=== PATIENT | female | born 1955 | race Caucasian/White ===

== ENCOUNTER 2016-04-03 15:23 | Inpatient (IN) | payer OTHER ==
[~2016-04-03] VITALS: Ht 172.7 cm; Wt 86.2 kg
[2016-04-03 17:37] LABS: HEMATOCRIT 41.1 % (36.0-46.0); MCH 28.6 PG (29.0-34.0); MCHC 33.6 G/DL (30.0-36.0); MCV 85.3 FL (83-99); MEAN PLAT.VOLUME 9.1 uM^3 (9.5-12.4); PLATELET COUNT 304 K/uL (156-360); RBC DIS.WIDTH-CV 13.9 % (11.8-14.6); RBC DIS.WIDTH-SD 42.8 % (39-53); RED BLOOD COUNT 4.82 M/uL (3.80-5.20); WHITE BLOOD COUNT 9.8 K/uL (4.1-10.2)
[2016-04-03 17:48] LABS: CHLORIDE 107 mEq/L (99-109); SODIUM 139 mEq/L (136-147)
[2016-04-03 17:50] LABS: GLUCOSE 89 mg/dL (70-99)
[2016-04-03 17:51] LABS: ANION GAP 7 MEQ/L (2-14)
[2016-04-03 17:52] LABS: TOTAL BILIRUBIN 0.5 mg/dL (0.0-1.0)
[2016-04-03 17:53] LABS: SERUM ETHYL ALCOHOL < 10 mg/dL
[2016-04-03 17:54] LABS: GFR ESTIMATE (CALCULATED) > 59 mL/min/
[2016-04-03 17:55] LABS: ALKALINE PHOSPHATASE 104 IU/L (3-129)
[2016-04-03 17:56] LABS: UREA NITROGEN (BUN) 11 mg/dL (9-23)
[2016-04-03 17:57] LABS: SALICYLATE < 5.0 MG/DL (15-30)
[2016-04-03] MEDS ORDERED: LEXAPRO20 MG PO (18:08)
[2016-04-03] MEDS ORDERED: ALPRAZOLAM0.25 M2 PO (18:08)
[2016-04-03] MEDS ORDERED: LAMICTAL100 MG PO (18:08)
[2016-04-03 18:45] LABS: ADD MIUA? NO; BILIRUBIN NEGATIVE; BLOOD NEGATIVE; COLOR YELLOW ((YELLOW)); GLUCOSE (STRIP) NEGATIVE; KETONES NEGATIVE; LEUKOCYTES NEGATIVE; NITRITE NEGATIVE; PH, URINE 6.5 (5-8); PROTEIN (STRIP) NEGATIVE; SPECIFIC GRAVITY 1.015 (1.000-1.030); UCUL ADDED? NO; UROBILINOGEN 0.2 MG/DL (0.2-1.0)
[2016-04-03 18:59] LABS: AMPHETAMINE NEGATIVE (500 ng/mL); BARBITURATES NEGATIVE (200 ng/mL); BENZODIAZEPINES PRESUMPTIVE POSITIVE (150 ng/mL); COCAINE NEGATIVE (150 ng/mL); INTERNAL CONTROLS VALID? YES; METHADONE NEGATIVE (200 ng/mL); METHAMPHETAMINE NEGATIVE (500 ng/mL); OPIATES (MORPHINE) NEGATIVE (100 ng/mL); OXYCODONE NEGATIVE (100 ng/mL); PHENCYCLIDINE NEGATIVE (25 ng/mL); PROPOXYPHENE NEGATIVE (300 ng/mL); THC CANNABINOIDS PRESUMPTIVE POSITIVE (50 ng/mL); TRICYCLIC ANTIDEPRESSANTS NEGATIVE (300 ng/mL)
[2016-04-03 19:00] LABS: ADD MEDTOX COMMENT Y
[2016-04-03 19:49] LABS: BENZODIAZEPINES QUANT VALUE 0 NG/ML
[2016-04-03 20:06] LABS: BENZODIAZEPINES, URINE SCREEN Negative (200 ng/mL)
[2016-04-03 22:19] VITALS: BP 162/73
[2016-04-03 22:22] VITALS: BP 162/73
[2016-04-04 07:22] VITALS: BP 137/65
[2016-04-04 15:21] VITALS: BP 128/76
[2016-04-05 07:42] VITALS: BP 122/56
[2016-04-05 15:22] VITALS: BP 152/85
[2016-04-06 07:54] VITALS: BP 157/83
[2016-04-06 15:38] VITALS: BP 155/75
[2016-04-07 07:45] VITALS: BP 124/58
[2016-04-07] MEDS ORDERED: EFFEXOR XR37.5 MG PO (09:38)
[2016-04-07] MEDS ORDERED: ROPINIROLE HCL0.5 MG PO (09:38)
== END 2016-04-07 12:28 | disposition home or self-care (01) | DRG 881 ==
LOC: EME 15:23 → EDOF 17:37 → 1WEST 17:37
PROVIDERS: Emergency Medicine
DX: F32.9 Major depressive disorder, single episode, unspecified (principal); R45.851 Suicidal ideations; I10 Essential (primary) hypertension; I25.2 Old myocardial infarction; Z88.8 Allergy status to other drugs, medicaments and biological substances; G25.81 Restless legs syndrome; F41.1 Generalized anxiety disorder
CPT/HCPCS: 80053; 81003; 84999; 85027; 90839; 97150 GO; 97165 GO; 99281; 99284; G0480